=== PATIENT | female | born 1985 | race Caucasian/White ===

== ENCOUNTER 2024-05-09 19:45 | Inpatient (IN) | payer OTHER ==
[2024-05-09 21:27] LABS: BASO % 0.4 % (0-2.0); EOS % 0.4 % (0-4.5); HEMATOCRIT 35.7 % (32.4-45.2); HEMOGLOBIN 12.3 GM/dL (10.7-15.3); LYMPH % 17.2 % (8-40); MCH 34.1 pg (25.7-33.7); MCHC 34.4 g/dl (32.0-36.0); MEAN CELL VOLUME 99.1 fl (80-96); MONO % 7.3 % (3.8-10.2); NEUT % 74.7 % (42.8-82.8); PLATELET COUNT 148 10^3/uL (134-434); RDW 13.6 % (11.6-15.6); WHITE BLOOD COUNT 7.4 K/mm3 (4.0-10.0)
[2024-05-09 21:30] LABS: URINE APPEARANCE CLEAR; URINE BILIRUBIN NEGATIVE (NEGATIVE); URINE COLOR YELLOW; URINE GLUCOSE (UA) NEGATIVE (NEGATIVE); URINE KETONE NEGATIVE (NEGATIVE); URINE LEUK ESTERASE NEGATIVE (NEGATIVE); URINE NITRITE NEGATIVE (NEGATIVE); URINE PROTEIN TRACE (NEGATIVE); URINE UROBILINOGEN 0.2 mg/dL (0.2-1.0)
[2024-05-09 21:34] LABS: INR 0.93 (0.83-1.09); PROTHROMBIN TIME (PATIENT) 10.5 SEC (9.7-13.0)
[2024-05-09 21:36] VITALS: BMI 28.7
[2024-05-09 21:37] LABS: ACTIVATED PTT 29.2 SECONDS (25.2-36.5)
[2024-05-09 22:21] LABS: POTASSIUM 3.6 mmol/L (3.5-5.1)
[2024-05-09 22:23] LABS: ALBUMIN 2.8 g/dl (3.4-5.0); BLOOD UREA NITROGEN 12.1 mg/dL (7-18); CALCIUM 9.7 mg/dL (8.5-10.1)
[2024-05-09 22:26] LABS: CREATININE 0.5 mg/dL (0.55-1.3)
[2024-05-09 22:28] LABS: BILIRUBIN,TOTAL 0.4 mg/dL (0.2-1); TOT PROT 6.2 g/dl (6.4-8.2)
[2024-05-09] MEDS: DINOPROSTONE 10 MG VAGINAL SUPPOSITORY VG ONE (22:30)
[2024-05-09] MEDS ORDERED: LABETALOL HCL 200 MG TABLET (FP) ONE (23:00)
[2024-05-09] MEDS: LABETALOL HCL 200 MG TABLET (FP) PO SCH (23:00)
[2024-05-09] MEDS ORDERED: AMPICILLIN SODIUM 2 GM VIAL ONE (23:33)
[2024-05-09] MEDS: LACTATED RINGERS SOLUTION 1,000 ML IV SCH (23:35)
[2024-05-09] MEDS: AMPICILLIN - 2 GM in SODIUM CHLORIDE 100 ML IVPB ONE (23:39)
[2024-05-10] MEDS ORDERED: AMPICILLIN SODIUM 1 GM VIAL ONE ×5 (03:46→18:35)
[2024-05-10] MEDS: AMPICILLIN - 1 GM in SODIUM CHLORIDE 100 ML IVPB SCH (03:49)
[2024-05-10] MEDS ORDERED: OXYTOCIN 30 UNITS in 0.9% NS 30 UNIT/500 ML INFUS.BAG IVPB ONE (09:24)
[2024-05-10] MEDS: OXYTOCIN 30 UNITS in 0.9% NS 30 UNIT/500 ML INFUS.BAG IVPB SCH (09:25)
[2024-05-10] MEDS ORDERED: FENTANYL/BUPIVACAINE/NS/PF - PCEA - 50 ML DISP.SYRIN EP ONE ×2 (09:44→13:50)
[2024-05-10] MEDS: FENTANYL/BUPIVACAINE/NS/PF - PCEA - 50 ML DISP.SYRIN EP SCH (10:00)
[2024-05-10] MEDS ORDERED: LABETALOL HCL 200 MG TABLET (FP) ONE ×2 (10:25→22:29)
[2024-05-10] MEDS ORDERED: NALOXONE HCL 0.4 MG/ML VIAL IVPUSH PRN (11:44)
[2024-05-10] MEDS ORDERED: OXYTOCIN 20 UNITS in 0.9% NS 20 UNIT/1,000 ML INFUS.BAG IV ONE ×2 (12:42→20:47)
[2024-05-10] MEDS ORDERED: BUPIVACAINE HCL/PF 0.25% (2.5MG/ML) 10 ML VIAL ONE (18:36)
[2024-05-10] MEDS: TERBUTALINE SULFATE 1 MG/1 ML VIAL SQ ONE (18:38)
[2024-05-10] MEDS ORDERED: FENTANYL CITRATE/PF 50 MCG/ML VIAL ONE ×2 (18:56→19:13)
[2024-05-10] MEDS ORDERED: morphine SULFATE (PF) 1 MG/2 ML SYRINGE ONE (19:14)
[2024-05-10] MEDS ORDERED: ONDANSETRON 4 MG/2 ML VIAL ONE (19:24)
[2024-05-10] MEDS ORDERED: ceFAZolin SODIUM 1 GM VIAL ONE (19:24)
[2024-05-10] MEDS ORDERED: DEXAMETHASONE SOD PHOSPHATE 4 MG/1 ML VIAL ONE (19:24)
[2024-05-10] MEDS ORDERED: OXYTOCIN 10 UNITS/ML VIAL ONE (19:33)
[2024-05-10] MEDS: OXYTOCIN 20 UNITS in 0.9% NS 20 UNIT/1,000 ML INFUS.BAG IV SCH (20:47)
[2024-05-10] MEDS ORDERED: ONDANSETRON 4 MG/2 ML VIAL IVPUSH PRN (20:47)
[2024-05-10] MEDS ORDERED: IBUPROFEN 600 MG TABLET (FP) PO PRN (20:48)
[2024-05-10] MEDS ORDERED: ACETAMINOPHEN 325 MG TABLET (FP) PO PRN (20:48)
[2024-05-10] MEDS ORDERED: METHYLERGONOVINE MALEATE 0.2 MG/1 ML AMP IM PRN (20:51)
[2024-05-10] MEDS ORDERED: SIMETHICONE 80 MG TAB.CHEW (FP) PO PRN (20:51)
[2024-05-10] MEDS ORDERED: IBUPROFEN 800 MG/8 ML IJ IVPB ONE (22:05)
[2024-05-10] MEDS: IBUPROFEN 800 MG/8 ML IJ IVPB PRN (22:13)
[2024-05-11] MEDS: ELECTROLYTE-148 SOLN 1,000 ML IV SCH (00:20)
[2024-05-11] MEDS: PROMETHAZINE HCL 25 MG/1 ML VIAL IVPB ONE (00:20)
[2024-05-11] MEDS: BUTORPHANOL TARTRATE 1 MG/ML VIAL IVPB ONE (00:20)
[2024-05-11] MEDS: ACETAMINOPHEN 1000 MG/100 ML BAG IVPB PRN (00:38)
[2024-05-11 07:32] LABS: BASO % 0.2 % (0-2.0); HEMATOCRIT 30.7 % (32.4-45.2); HEMOGLOBIN 10.5 GM/dL (10.7-15.3); LYMPH % 6.7 % (8-40); MCHC 34.1 g/dl (32.0-36.0); MEAN CELL VOLUME 99.7 fl (80-96); MEAN PLT VOLUME 9.1 fl (7.5-11.1); MONO % 6.3 % (3.8-10.2); NEUT % 86.8 % (42.8-82.8); PLATELET COUNT 128 10^3/uL (134-434); RBC 3.08 M/mm3 (3.60-5.2); RDW 13.5 % (11.6-15.6); WHITE BLOOD COUNT 12.4 K/mm3 (4.0-10.0)
[2024-05-11] MEDS ORDERED: oxyCODONE HCL 5 MG TABLET PO PRN ×2 (08:51)
[2024-05-11] MEDS: ACETAMINOPHEN 325 MG TABLET (FP) PO PRN (16:11)
[2024-05-11] MEDS ORDERED: BISACODYL 10 MG SUPP.RECT RC PRN (20:51)
[2024-05-11 21:16] VITALS: RESP 18
[2024-05-12] MEDS: IBUPROFEN 600 MG TABLET (FP) PO PRN (08:36)
[2024-05-13 08:24] LABS: BASO % 0.4 % (0-2.0); EOS % 1.2 % (0-4.5); HEMOGLOBIN 10.4 GM/dL (10.7-15.3); MCH 34.4 pg (25.7-33.7); MCHC 34.7 g/dl (32.0-36.0); MEAN CELL VOLUME 99.2 fl (80-96); MONO % 5.8 % (3.8-10.2); NEUT % 76.6 % (42.8-82.8); PLATELET COUNT 159 10^3/uL (134-434); RBC 3.02 M/mm3 (3.60-5.2); RDW 13.5 % (11.6-15.6); WHITE BLOOD COUNT 6.9 K/mm3 (4.0-10.0)
[2024-05-13 09:00] VITALS: BP 131/84; PULSE 79; TEMP 98
== END 2024-05-13 18:00 | disposition home or self-care (01) | DRG 540 ==
LOC: JDEL 19:45 → JLDR 20:45 → J3W 05-10 23:09
PROVIDERS: ADMIT Student in an Organized Health Care Education/Training Program; ATTEND Student in an Organized Health Care Education/Training Program
PROC: 10907ZC Drainage of Amniotic Fluid, Therapeutic from Products of Conception, Via Natural or Artificial Opening (ICD-10-PCS; principal; 2024-05-10)
PROC: 10D00Z1 Extraction of Products of Conception, Low, Open Approach (ICD-10-PCS; 2024-05-10)
PROC: 3E0P7VZ Introduction of Hormone into Female Reproductive, Via Natural or Artificial Opening (ICD-10-PCS; 2024-05-10)
PROC: 3E033VJ Introduction of Other Hormone into Peripheral Vein, Percutaneous Approach (ICD-10-PCS; 2024-05-10)
DX: O32.4XX0 Maternal care for high head at term, not applicable or unspecified (principal); O14.04 Mild to moderate pre-eclampsia, complicating childbirth; O61.0 Failed medical induction of labor; O99.824 Streptococcus B carrier state complicating childbirth; Z3A.40 40 weeks gestation of pregnancy; Z37.0 Single live birth
CPT/HCPCS: 36415; 80053; 81003; 82570; 84156; 85025; 85610; 85730; 86780; 86850; 86900; 86901; 88307-TC; 94010; J0131